=== PATIENT | female | born 1990 | race Caucasian/White ===

== ENCOUNTER 2017-09-21 12:57 | Emergency (ER) | payer SELFPAY ==
[2017-09-21] MEDS ORDERED: Acetaminophen 325 MG TAB ONE (13:16)
== END 2017-09-21 13:33 | disposition home or self-care (01) ==
LOC: BURERS 12:57
DX: S61.212A Laceration without foreign body of right middle finger without damage to nail, initial encounter (principal); W26.0XXA Contact with knife, initial encounter
CPT/HCPCS: 12001

== ENCOUNTER 2017-12-01 18:19 | Emergency (ER) | payer SELFPAY ==
[2017-12-01] MEDS ORDERED: Azithromycin 250 MG TAB ONE (18:46)
[2017-12-01] MEDS ORDERED: Dexamethasone 4 mg/ml Vial ONE (18:46)
[2017-12-01] MEDS ORDERED: Benzonatate 100 MG CAP ONE (18:46)
== END 2017-12-01 18:58 | disposition home or self-care (01) ==
LOC: BURERS 18:19
DX: J20.9 Acute bronchitis, unspecified (principal)
CPT/HCPCS: 99283; J1100

== ENCOUNTER → 2018-05-19 | Emergency (ER) | payer BC, SELFPAY ==
[~2018-05-19] MED LIST: AMOXicillin 250 MG CAP ONE
== END ==
LOC: BURERS 05:39
DX: J02.9 Acute pharyngitis, unspecified (principal)
CPT/HCPCS: 99283

== ENCOUNTER 2019-03-13 21:22 | Emergency (ER) | payer BC ==
[2019-03-13] MEDS ORDERED: predniSONE 20 MG TAB ONE (21:40)
== END 2019-03-13 21:43 | disposition home or self-care (01) ==
LOC: BURERS 21:22
DX: J37.0 Chronic laryngitis (principal); B97.89 Other viral agents as the cause of diseases classified elsewhere; J45.909 Unspecified asthma, uncomplicated
CPT/HCPCS: 99283; J7512

== ENCOUNTER 2019-06-10 14:41 | Emergency (ER) | payer BC | END 2019-06-10 15:07 | disposition home or self-care (01) | LOC: BURERS 14:41 | DX: M25.562 Pain in left knee (principal); J45.909 Unspecified asthma, uncomplicated | CPT/HCPCS: 99281 ==

== ENCOUNTER 2019-09-14 09:10 | Emergency (ER) | payer BC ==
[2019-09-14] MEDS ORDERED: Ibuprofen 200 MG TAB ONE (10:11)
[2019-09-14] MEDS ORDERED: Clindamycin 150 MG CAP ONE (10:11)
== END 2019-09-14 10:25 | disposition home or self-care (01) ==
LOC: BURERS 09:10
DX: J36 Peritonsillar abscess (principal); J45.909 Unspecified asthma, uncomplicated
CPT/HCPCS: 87081; 87430; 99283

== ENCOUNTER 2019-10-30 20:53 | Emergency (ER) | payer BC ==
[2019-10-30 21:18] LABS: Bilirubin Negative (Negative); Blood, Urine Trace (Negative); Clarity Slightly Cloudy (Clear); Glucose, Urine (Dipstick) Negative (Negative); Ketone, Urine Negative (Negative); Leukocyte Negative (Negative); Nitrite Negative (Negative); Protein, Urine (Dipstick) Negative (Neg-Trace); Specific Gravity, Urine 1.028 (1.002-1.036)
[2019-10-30 21:21] LABS: Bacteria/HPF 1+ HPF (None Seen); WBC/HPF 0-3 HPF (0-3); Yeast-Budding Rare HPF (None Seen)
[2019-10-30 21:22] LABS: Pregnancy Test - Urine (BHCG) Negative (Negative); Pregu Control Background? CLEAR/WHITE (CLR/WHITE); Pregu Control Bar Appear? YES (CONTROL BAR); Specific Gravity 1.028 (1.002-1.036)
--- NOTE | 2019-10-30 21:53 | RAD ---
LUMBAR SPINE THREE VIEWS: 10/30/19 Slight curvature of the spine could be positional. No overt facture or disc space narrowing was seen. The SI joints are not seen well enough to comment upon. The overall sensitivity of the study is some what low. IMPRESSION: No gross fracture. POS: HOME
== END 2019-10-30 21:45 | disposition home or self-care (01) ==
LOC: BURERS 20:53
DX: S39.012A Strain of muscle, fascia and tendon of lower back, initial encounter (principal); V89.2XXA Person injured in unspecified motor-vehicle accident, traffic, initial encounter
CPT/HCPCS: 72100; 81003; 81015; 81025

== ENCOUNTER 2020-03-23 13:55 | Outpatient (CLI) | payer BC ==
--- NOTE | 2020-03-23 15:57 | RAD ---
XR Finger(s) Rt Min 2 View INDICATION: Trauma to the right small digit with pain COMPARISON: None. FINDINGS: Bones: There is a comminuted fractures involving the head, neck and distal shaft of the small finger middle phalanx. There is approximately 0.7 mm of articular surface step-off involving the medial condyle of the small finger middle phalangeal head Soft tissues: There is soft tissue swelling of the right small digit Joints: As above IMPRESSION: Comminuted, mildly displaced, intra-articular right small digit middle phalangeal head, n candie and shaft fracture
== END 2020-03-23 13:56 | disposition home or self-care (01) ==
LOC: BURRAD 13:55
PROVIDERS: ATTEND Nurse Practitioner Family
DX: M79.641 Pain in right hand (principal); M79.89 Other specified soft tissue disorders; S62.626A Displaced fracture of middle phalanx of right little finger, initial encounter for closed fracture

== ENCOUNTER 2020-10-12 23:32 | Emergency (ER) | payer OTHER | END 2020-10-13 00:15 | disposition home or self-care (01) | LOC: BURERS 23:32 | DX: S92.514A Nondisplaced fracture of proximal phalanx of right lesser toe(s), initial encounter for closed fracture (principal); J45.909 Unspecified asthma, uncomplicated; W01.198A Fall on same level from slipping, tripping and stumbling with subsequent striking against other object, initial encounter ==